=== PATIENT | female | born 1935 | race Caucasian/White ===

== ENCOUNTER 2018-09-02 20:03 | Inpatient (IN) | payer MEDICARE, OTHER ==
[~2018-09-02] VITALS: Ht 152.4 cm; Wt 55.3 kg
--- NOTE | 2018-09-02 20:10 | NUR ---
PT BIB BY FAMILY C/O WEAKNESS. PT WAS [place] THE [place]ALL AND FELT GENERALIZED WEAKNESS PHLEBOTOMY TECHNOLOGIST. SENT FROM URGENT CARE TO RULE OUT TIA. PT ON MONITOR IN BED 10 WITH FAMILY AT BEDSIDE. WILL CONTINUE TO MONITOR.
--- NOTE | 2018-09-02 20:17 | NUR ---
TECH AT BEDSIDE FOR EKG
--- NOTE | 2018-09-02 20:38 | NUR ---
BLOOD DRAWN AND GIVEN TO LAB
[2018-09-02 20:40] LABS: BASOPHILS # (AUTO) 0.1 /CMM (0.0-0.2); BASOPHILS % (AUTO) 0.9 % (0.0-2.0); EOSINOPHILS % (AUTO) 2.6 % (0.0-6.0); HEMATOCRIT 42 % (33-45); HEMOGLOBIN 13.8 g/dL (11.5-14.8); LYMPHOCYTES # (AUTO) 1.6 /CMM (0.8-4.8); LYMPHOCYTES % (AUTO) 21.5 % (20.0-44.0); MEAN CORPUSCULAR HGB CONC 33 g/dl (31.0-36.0); MEAN CORPUSCULAR VOLUME 90 fL (82-100); MONOCYTES # (AUTO) 0.7 /CMM (0.1-1.30); MONOCYTES % (AUTO) 9.3 % (2.0-12.0); NEUTROPHILS # (AUTO) 4.9 /CMM (1.8-8.9); NEUTROPHILS % (AUTO) 65.7 % (43.0-81.0); PLATELET COUNT (AUTO) 236 /CMM (150-450); RED BLOOD CELL COUNT(AUTO) 4.61 MIL/uL (4.0-5.2); WHITE BLOOD COUNT (AUTO) 7.5 K/uL (4.3-11.0)
--- NOTE | 2018-09-02 20:42 | NUR ---
RADIOLOGY AT BEDSIDE FOR CXR
--- NOTE | 2018-09-02 20:46 | NUR ---
PT TAKEN TO RADIOLOGY FOR CT VIA SAMUEL
[2018-09-02 20:51] LABS: CALCIUM, SERUM 9.6 mg/dL (8.5-10.1); CARBON DIOXIDE 31 mmol/L (21-32); CHLORIDE 101 mmol/L (98-107); CREATININE 1.3 mg/dL (0.6-1.3); GLUCOSE 116 mg/dL (74-106); POTASSIUM 4.5 mmol/L (3.5-5.1); SODIUM SERUM 139 mmol/L (136-145); UREA NITROGEN, BLOOD 29 mg/dL (7-18)
[2018-09-02 20:57] LABS: ALANINE AMINOTRANSFERASE 29 U/L (12-78); ALBUMIN 3.6 g/dL (3.4-5.0); ALKALINE PHOSPHATASE 88 U/L (46-116); ASPARTATE AMINOTRANSFERASE 22 U/L (15-37); BILIRUBIN,TOTAL 0.2 mg/dL (0.2-1.0); TOTAL PROTEIN, SERUM 7.4 g/dL (6.4-8.2)
--- NOTE | 2018-09-02 21:23 | NUR ---
URINE COLLECTED AND SENT TO LAB
[2018-09-02 21:31] LABS: APPEARANCE,URINE Clear (CLEAR); BILIRUBIN,URINE Negative (NEGATIVE); BLOOD, URINE Trace-lysed Ery/uL (NEGATIVE); COLOR,URINE Yellow (YELLOW); KETONES,URINE Trace (NEGATIVE); LEUKOCYTE ESTERASE ,URINE Negative (NEGATIVE); NITRITE, URINE Negative (NEGATIVE); PROTEIN,URINE Negative (NEGATIVE); UGLUCOSE Negative (NEGATIVE); UROBILINOGEN,URINE 0.2 EU/dL (0.2)
[2018-09-02 21:43] LABS: SQUAMOUS EPITHELIAL CELL,UR None Seen /HPF (None Seen)
[2018-09-02 21:45] LABS: BACTERIA,URINE Rare /HPF (None Seen); WBC,URINE 0-2 /HPF (0-3)
[2018-09-02] MEDS ORDERED: ASPIRIN 325 MG TABLET PO ONE (22:00)
[2018-09-02] MEDS ORDERED: ASPIRIN 325 MG TABLET ONE (22:04)
[2018-09-02] MEDS ORDERED: ASPIRIN EC 325 MG TABLET.DR PO ONE (22:08)
--- NOTE | 2018-09-02 22:14 | NUR ---
Patient is resting comfortably in bed with eyes closed. Easily aroused. FAMILY AT BEDSIDE. VSS. WILL CONTINUE TO MONITOR.
[2018-09-02] MEDS ORDERED: IV NS 0.9% 1,000 ML IV PRN (23:15)
[2018-09-02 23:25] VITALS: BP 142/51
--- NOTE | 2018-09-02 23:25 | NUR ---
SOCIAL WORK PROFESSOR NOTE RECEIVED PT IN STABLE CONDITION A&O X3-4 CHINESE SPEAKING. NO SIGNS OF SOB OR DISTRESS. PT DAUGHTER AT BEDSIDE. ALL BELONGINGS ACCOUNTED FOR. SAFETY MEASURES IN PLACE: BED LOCKED IN LOWEST POSITION, BED RAILS UP X2, AND CALL LIGHT WITHIN REACH. WILL CONT. MONITOR.
--- NOTE | 2018-09-02 23:26 | NUR ---
REPORT GIVEN TO RIAT/ADELINE ON BEHALF OF PRIMARY NURSE FELA.
[2018-09-02] MEDS ORDERED: MAG HYDROX/AL HYDROX/SIMETH 30 ML UDC PO PRN (23:30)
[2018-09-02] MEDS ORDERED: ACETAMINOPHEN 325 MG TABLET PO PRN (23:30)
[2018-09-02] MEDS ORDERED: ONDANSETRON HCL/PF 4 MG/2 ML VIAL IVP PRN (23:30)
[2018-09-02] MEDS ORDERED: LORAZEPAM 1 MG TABLET PO PRN (23:30)
[2018-09-02] MEDS ORDERED: HYDROCODONE/APAP 5/325MG 1 EACH TABLET PO PRN (23:30)
[2018-09-02] MEDS ORDERED: MAGNESIUM HYDROXIDE 30 ML UDC PO PRN (23:30)
[2018-09-02] MEDS ORDERED: ENOXAPARIN SODIUM 30 MG/0.3 ML DISP.SYRIN SQ SCH (23:30)
[2018-09-03] MEDS ORDERED: hydrALAZINE HCL IV 20 MG VIAL IV PRN
[2018-09-03 04:00] VITALS: BP 130/66
--- NOTE | 2018-09-03 06:22 | NUR ---
EXPLOSIVE ORDNANCE DISPOSAL TECHNICIAN NOTE PT IN STABLE CONDITION A&O X3-4 [place] SPEAKING CURRENTLY RESTING IN BED. NO SIGNS OF SOB OR DISTRESS. IV L AC PATENT AND INTACT IVF NS 75 ML/HR TOLERATING WELL. SAFETY MEASURES IN PLACE: BED LOCKED IN LOWEST POSITION, BED RAILS UP X2, AND CALL LIGHT WITHIN REACH. WILL CONT. MONITOR AND ENDORSE TO NEXT SHIFT.
[2018-09-03 06:51] LABS: BASOPHILS % (AUTO) 0.8 % (0.0-2.0); EOSINOPHILS % (AUTO) 2.3 % (0.0-6.0); HEMATOCRIT 38 % (33-45); HEMOGLOBIN 12.7 g/dL (11.5-14.8); LYMPHOCYTES % (AUTO) 33.9 % (20.0-44.0); MEAN CORPUSCULAR HGB CONC 33 g/dl (31.0-36.0); MEAN CORPUSCULAR VOLUME 90 fL (82-100); MONOCYTES # (AUTO) 0.6 /CMM (0.1-1.30); MONOCYTES % (AUTO) 10.3 % (2.0-12.0); NEUTROPHILS # (AUTO) 3.2 /CMM (1.8-8.9); NEUTROPHILS % (AUTO) 52.7 % (43.0-81.0); PLATELET COUNT (AUTO) 207 /CMM (150-450); RED BLOOD CELL COUNT(AUTO) 4.26 MIL/uL (4.0-5.2)
[2018-09-03 07:14] LABS: CHOLESTEROL 164 mg/dL (<200); HDL CHOLESTEROL 61 mg/dL (40-60); LDL 87 mg/dL (0-99); TRIGLYCERIDES 123 mg/dL (30-150)
[2018-09-03] MEDS ORDERED: PANTOPRAZOLE 40 MG TABLET.DR PO SCH (07:30)
[2018-09-03 07:50] LABS: CALCIUM, SERUM 8.9 mg/dL (8.5-10.1); CARBON DIOXIDE 28 mmol/L (21-32); CHLORIDE 105 mmol/L (98-107); CREATININE 1.1 mg/dL (0.6-1.3); GLUCOSE 113 mg/dL (74-106); MAGNESIUM 1.9 mg/dL (1.8-2.4); PHOSPHORUS 3.9 mg/dL (2.5-4.9); SODIUM SERUM 142 mmol/L (136-145); UREA NITROGEN, BLOOD 24 mg/dL (7-18)
[2018-09-03 08:00] VITALS: BP 126/58
--- NOTE | 2018-09-03 08:00 | NUR ---
PROJECT ENGINEER AM NOTES PT IN STABLE CONDITION A&O X3-4 TANZANIAN/ERITREAN SPEAKING RESTING COMFORTABLY N BED. NO SIGNS OF SOB OR DISTRESS. DENIES PAIN.WITH IV L AC PATENT AND INTACT IVF NS 75 ML/HR TOLERATING WELL. SAFETY MEASURES IN PLACE: BED LOCKED IN LOWEST POSITION, BED RAILS UP X2, AND CALL LIGHT WITHIN REACH. WILL CONT. MONITOR
[2018-09-03] MEDS ORDERED: VALS160T29 PO (11:39)
[2018-09-03] MEDS ORDERED: SERT100T PO (11:39)
[2018-09-03] MEDS ORDERED: METF-440 PO (11:39)
[2018-09-03] MEDS ORDERED: GLUCOSA (11:39)
[2018-09-03] MEDS ORDERED: LORA2TAB PO (11:39)
[2018-09-03] MEDS ORDERED: SIMV10TA6 PO (11:39)
[2018-09-03] MEDS ORDERED: MELOXICAM (11:39)
[2018-09-03] MEDS ORDERED: ASPI-1152 PO (13:47)
--- NOTE | 2018-09-03 15:00 | NUR ---
DISCHARGED PT HOME WITH STABLE V/S.ACCOMPANIED BY HER DTR,JIA VIA PRIVATE CAR. DENIES ANY PAIN OR DISTRESS.IV H/L TO LT AC REMOVED WITHOUT BLEEDING NOTED.
== END 2018-09-03 15:00 | disposition home or self-care (01) | DRG 684 ==
LOC: ER 20:07 → TELE 23:06
PROVIDERS: ADMIT Nurse Practitioner Acute Care; ATTEND Nurse Practitioner Acute Care
DX: N17.0 Acute kidney failure with tubular necrosis (principal); G30.9 Alzheimer's disease, unspecified; F02.80 Dementia in other diseases classified elsewhere, unspecified severity, without behavioral disturbance, psychotic disturbance, mood disturbance, and anxiety; E11.9 Type 2 diabetes mellitus without complications; E78.5 Hyperlipidemia, unspecified; E86.0 Dehydration; G47.00 Insomnia, unspecified; G89.29 Other chronic pain; I10 Essential (primary) hypertension; I16.0 Hypertensive urgency; M19.90 Unspecified osteoarthritis, unspecified site; Z79.82 Long term (current) use of aspirin; Z79.84 Long term (current) use of oral hypoglycemic drugs; Z82.3 Family history of stroke; Z80.1 Family history of malignant neoplasm of trachea, bronchus and lung; Z90.721 Acquired absence of ovaries, unilateral; Z79.899 Other long term (current) drug therapy; M17.0 Bilateral primary osteoarthritis of knee
CPT/HCPCS: 36415; 70450-TC; 71045-TC; 80048-TC; 80061-TC; 80076-TC; 81000-TC; 82962-TC; 83735-TC; 84100-TC; 84484-TC; 85025-TC; 85730-TC; 87081-TC; 87086-TC; G0378; J1650; J7030